=== PATIENT | female | born 1975 | race African-American/Black ===

== ENCOUNTER 2018-07-10 10:48 | Emergency (ER) | payer MEDICAID ==
[~2018-07-10] VITALS: Ht 165.1 cm; Wt 99.8 kg
[2018-07-10 11:02] VITALS: Ht 165.1 cm; Wt 99.8 kg
[2018-07-10 12:41] VITALS: BP 167/86
== END 2018-07-10 12:41 | disposition home or self-care (01) ==
LOC: ED 10:48
DX: E11.649 Type 2 diabetes mellitus with hypoglycemia without coma (principal); I10 Essential (primary) hypertension; Z90.49 Acquired absence of other specified parts of digestive tract
CPT/HCPCS: 82962